=== PATIENT | male | born 1970 | race Caucasian/White ===

== ENCOUNTER 2024-03-26 08:58 | Outpatient (CLI) | payer OTHER, SELFPAY ==
--- NOTE | ~2024-03-26 | PE_ITS ---
EXAMINATION: PET skull to mid thigh DATE: 03/26/2024 11:06 INDICATION: Solitary nodule of lung. TECHNIQUE: Blood glucose level was 139 mg/dL. 9.506 mCi of 18-fluorodeoxyglucose (18-FDG) was adminis tered i.v. Low dose computed tomography (CT) images were acquired from the base of the brain to the p roximal thighs for attenuation correction and anatomic localization. Automated exposure control was e mployed. Dose-length product (DLP) was 1239 mGy-cm. Positron emission tomography (PET) images were ac quired in the same distribution. COMPARISON: None FINDINGS: Head/neck: There are no pathologically enlarged lymph nodes. Chest: The lungs demonstrate mild atelectasis. In the left upper lobe, there is a 6 mm nodule without increased activity. A calcified left lung nodule and calcified left hilar lymph nodes are consistent with old granulomatous disease. There is increased activity in normal-sized bilateral hilar lymph no micky, likely reactive. No pleural effusion. Cardiomegaly is noted. There are coronary artery calcifica tions. No pericardial effusion. Abdomen/pelvis/proximal thighs: The liver, gallbladder, pancreas, and adrenal glands are normal. Calc ifications in the spleen are consistent with old granulomatous disease. The kidneys are normal. There is a left inguinal hernia containing fat. The bladder is distended. There are no dilated loops of lu wel. The appendix is normal. There are no pathologically enlarged lymph nodes. There is no free intra peritoneal fluid. There is no osseous malignancy. IMPRESSION: 1. 6 mm nodule in left lung upper lobe without increased activity, probably benign. Consider noncontr ast, low-dose chest CT in 6-12 months. Reviewed, dictated and finalized at location A. IMPRESSION: 1. 6 mm nodule in left lung upper lobe without increased activity, probably zelalem ign. Consider noncontrast, low-dose chest CT in 6-12 months.
[2024-03-26 09:41] LABS: Glucose Point of Care 139 mg/dl (65-105)
== END 2024-03-26 08:59 | disposition home or self-care (01) ==
PROVIDERS: PCP Nurse Practitioner Family; Visit Provider Internal Medicine Pulmonary Disease
DX: R91.1 Solitary pulmonary nodule (principal)
CPT/HCPCS: 78815; A9552